=== PATIENT | male | born 1980 | race Caucasian/White ===

== ENCOUNTER 2020-05-27 22:07 | Inpatient (IN) | payer BC ==
[~2020-05-27] VITALS: Ht 177.8 cm; Wt 90.5 kg
[2020-05-27 22:54] LABS: MEAN CELL VOLUME 85 fl (80.0-100.0); MEAN CORPUSCULAR HEMOGLOBIN 30 pg (27.0-31.0); MEAN CORPUSCULAR HGB CONC 35 g/dl (33.0-37.0); MEAN PLATELET VOLUME 10.1 fl (7.4-10.4); PLATELET COUNT 282 K/mm3 (130-400)
[2020-05-27 23:02] LABS: BILIRUBIN,TOTAL 1.6 mg/dL (0.0-1.0); C-REACTIVE PROTEIN 8.4 mg/dL (0.0-0.9); CALCIUM 9.9 mg/dL (8.4-10.2); CREATININE, serum 0.78 (0.66-1.25); POTASSIUM 4.3 mmol/L (3.4-5.0); TOTAL PROTEIN 9.4 gm/dL (6.4-8.2)
[2020-05-27 23:07] LABS: LYMPHOCYTE 10 % (20.0-51.0); NEUTROPHILS 81 % (42.0-75.2); PLATELET ESTIMATE NORMAL (NORMAL)
[2020-05-28] VITALS (13 sets, daily range): BP systolic 118–142; BP diastolic 67–79; PULSE 87–103; TEMP 98–100.4
--- NOTE | 2020-05-28 00:56 | NUR ---
Report received from ED nurse MARICEL Heard. Patient to OR from ED.
[2020-05-28 01:00] LABS: COLLECTION METHOD CLEAN CATCH
[2020-05-28 01:08] LABS: PH 6 (5-8); SQUAMOUS EPITHELIAL 0-2 /hpf; URINE APPEARANCE Clear; URINE BACTERIA None Seen /hpf; URINE BILIRUBIN Negative (NEGATIVE); URINE BLOOD 1+ (NEGATIVE); URINE COLOR Yellow; URINE GLUCOSE Negative (NEGATIVE); URINE KETONE 1+ (NEGATIVE); URINE LEUKOCYTE ESTERASE Negative (NEGATIVE); URINE NITRATE Negative (NEGATIVE); URINE PROTEIN(semi-quant) Negative (NEGATIVE); URINE UROBILINOGEN Negative (NEGATIVE)
--- NOTE | 2020-05-28 02:35 | NUR ---
Report from PACU-Claudia CONNELLY. Reporting temp of 102.1. Notified Dr Gipson prior to leaving and new orders received for tylenol. Will administer when patient gets to floor.
--- NOTE | 2020-05-28 02:45 | NUR ---
Arrived to room 349 via bed from PACU. Oriented to room/policy. Patient is medicated and very drowsy-falling asleep during questions/teaching. Admission assessment complete as best as possible with medication. IV to Right AC patent. VS stable-temp 102.1-Dr Gipson aware-tylenol given per order. Lap sites x3-edges well approximated. SCDs applied. Will offer clear liquids when more awake. Call light in reach/bed alarm on. Will monitor.
--- NOTE | 2020-05-28 03:00 | NUR ---
Assisted up to bathroom at this time. States he thinks he needs to have a BM. Unable to at this time-assisted back to bed-very unsteady. States he is in a lot of pain-rating pain 10/10 on pain scale-described as constant throbbing with sharp jabs. Morphine given per dr order as not tolerating PO as of yet. Post op vitals continue and are stable. Call light in reach/bed alarm on. Will monitor.
--- NOTE | 2020-05-28 04:44 | NUR ---
Up to bathroom at this time-voided 450mls without difficulty. Assisted back to bed. call light in reach/bed alarm on. Will monitor.
--- NOTE | 2020-05-28 06:16 | NUR ---
Has slept since coming to floor. Received one dose of morphine for pain. Has not tolerated any PO due to being to tired. VS remained stable-did have a temp of 102.1 in PACU prior to arrival-temp for me was 100.8 axillary. Has been tachycardic as well. LR@100mls/hr-voiding without difficulty. Denies current needs. Call light in reach. Will monitor.
--- NOTE | 2020-05-28 06:57 | NUR ---
Lying in bed with eyes open. Alert and oriented x4. Rates pain in abd 3/10, says that the pain is much better since getting the pain medication earlier. Abd lap sites x3 with bandaids CDI. Discuss with the patient that he may have to stay a couple days for IV antibiotics, patient agrees to this. Denies additional needs at this time.
--- NOTE | 2020-05-28 08:48 | NUR ---
Lying in bed with eyes open. Sister at bedside talking with the patient. Denies needs at this time.
--- NOTE | 2020-05-28 10:19 | NUR ---
Patient ambulates into bathroom. Having some increased pain and would like pain medication. Administer [place] as prescribed. Patient sitting up on edge of bed. Denies additional needs.
--- NOTE | 2020-05-28 11:07 | NUR ---
Patient lying in bed with eyes open. Pain is better since pain medication. Sister in room with the patient. Patient denies additional needs at this time.
--- NOTE | 2020-05-28 11:50 | NUR ---
SW met with patient to conduct intake information. Patient lives alone in [place]. Patient does have support through a friend Rohini (P# [phone]) whom he refers to as his sister. Patient does have a sister named Flavia. Sister lives in [place] but is on her way to [place] to see him. Patient does not have DPOA and was not interested in the paperwork. Patient does not have a PCP and was not interested in establishing at this time. Please follow up with patient when he is feeling better and in less pain. Patient uses [facility] for medications. Patient denies concerns affording medications. Patient will return home at discharge with Rohini providing trasportation. There is a cultural language barrier with this patient, so be prepared to rephrase to assist with comprehension. Patient also experiences some cultural discomfort with female staff helping him with personal care and to the restroom. BECKIE spoke with nursing staff regarding this concern. Social work will continue to follow.
--- NOTE | 2020-05-28 12:46 | NUR ---
Patient ambulating in halls with MAGDALENE Barton.
--- NOTE | 2020-05-28 13:51 | NUR ---
Lying in bed in supine position with eyes closed. Respirations even and unlabored. No signs or symptoms of discomfort noted.
--- NOTE | 2020-05-28 15:01 | NUR ---
Lying in bed with eyes open. Denies pain at this time. Encourage patient to ambulate in halls. Patient denies additional needs at this time.
--- NOTE | 2020-05-28 17:05 | NUR ---
Lying in bed with eyes closed. Opens eyes when enter room. Continues to say that pain is good at this time and denies need for pain medication. Has decreased appetite but has been able to eat some. Denies any needs at this time.
--- NOTE | 2020-05-28 19:45 | NUR ---
Pt. sitting up in bed. Pt. is A&OX3, assessment complete. IV to rt. AC patent. Abd. laps x3 CDI with bandaids. Pt. reports pain at a 6 on pain scale. Giving pain meds per orders. Pt. also reports nausea, gave nausea meds per orders. Pt. denies further needs, call light within reach.
[2020-05-29 00:13] VITALS: BP 132/72; PULSE 86; TEMP 98
[2020-05-29 04:36] VITALS: BP 130/76; PULSE 85; TEMP 98.7
[2020-05-29 06:26] LABS: BASO % 0.3 % (0.0-2.0); EOS % 0.1 % (0-4.0); GRAN % 82.7 % (42.2-75.2); HEMATOCRIT 40.8 % (42.0-52.0); LYMPH # 1.6 (1.2-3.4); LYMPH % 11.1 % (20.0-51.0); MEAN CELL VOLUME 89 fl (80.0-100.0); MEAN CORPUSCULAR HGB CONC 33 g/dl (33.0-37.0); MEAN PLATELET VOLUME 10.2 fl (7.4-10.4); MONO # 0.8 (0.1-0.6); MONO % 5.2 % (1.7-9.3); RED BLOOD COUNT 4.58 M/mm3 (4.20-5.60); REDCELL DISTRIBUTION WIDTH-CV 12.2 % (11.5-14.5)
[2020-05-29 06:28] LABS: HEMOGLOBIN 13.5 g/dl (13.5-18.0); MEAN CORPUSCULAR HEMOGLOBIN 29 pg (27.0-31.0); PLATELET COUNT 178 K/mm3 (130-400)
--- NOTE | 2020-05-29 07:00 | NUR ---
Lying in bed with eyes open. Alert and oriented x4. Denies pain at this time. Patient explains that he wants to take pain medication as little as possible. Explain that he can let us know when he needs pain medication. Patient is passing flatus. Abd lap sites x3 with bandaids CDI. Encourage patient to increase actiivity today. Patient is hopeful to go home. Denies needs at this time.
[2020-05-29 07:34] VITALS: BP 141/75; PULSE 88; TEMP 98.5
[2020-05-29] MEDS ORDERED: FLAGYL500 MG PO (07:49)
[2020-05-29] MEDS ORDERED: CIPRO 500MG TA500 MG PO (07:50)
[2020-05-29] MEDS ORDERED: NORCO 325 MG-51 TAB PO (07:51)
--- NOTE | 2020-05-29 08:56 | NUR ---
Patient sitting on edge of bed. Having increased pain and would like pain medication. Administer as prescribed. Discuss with the patient that we will let his Zosyn complete and try to discharge around 1300 today, explain that if we can get him out sooner we will try. Patient verbalizes understanding and denies additional needs at this time.
--- NOTE | 2020-05-29 09:49 | NUR ---
Patient resting in bed with eyes open. Says pain medication is helping to alleviate his pain. Provide apple juice. Denies additional needs at this time.
--- NOTE | 2020-05-29 11:04 | NUR ---
Review all discharge instructions with the patient. Denies questions and signs discharge paperwork. Discharge packet provided to the patient. Patient will call sister to let him know that he is ready for discharge. Patient will use call light when sister is here to take him home. Denies additional needs at this time.
--- NOTE | 2020-05-29 11:49 | NUR ---
Patient sister here to pick patient up. Patient assisted out to POV with all belongings by MAGDALENE Barton.
== END 2020-05-29 11:49 | disposition home or self-care (01) | DRG 340 ==
LOC: COL.ER 22:07 → SURG 05-28 00:38
PROVIDERS: Physician Assistant; ADMIT Surgery
PROC: 0DTJ4ZZ Resection of Appendix, Percutaneous Endoscopic Approach (ICD-10-PCS; principal; 2020-05-28 01:30)
DX: K35.32 Acute appendicitis with perforation, localized peritonitis, and gangrene, without abscess (principal)
CPT/HCPCS: J1170; J2270; J2405; J2543; J2704; J3010; J7030; J7120; Q9967